=== PATIENT | male | born 1965 | race Caucasian/White ===

== ENCOUNTER → 2016-12-23 | Outpatient (CLI) | payer BC ==
[2016-12-23 11:25] LABS: ALBUMIN 4.2 G/DL (3.2-4.5); BILIRUBIN,TOTAL 0.8 MG/DL (0.1-1.0); CREATININE SERUM 1.37 MG/DL (0.60-1.30); TOTAL PROTEIN 6.7 G/DL (6.4-8.2)
[2016-12-23 11:45] LABS: THYROID STIMULATING HORMONE 1.92 UIU/ML (0.35-4.94)
--- NOTE | 2016-12-26 09:10 | ECHOCARDIOGRAPHY REPORT ---
PROCEDURE PHYSICIAN: TISHA EVANS DATE OF PROCEDURE: 12/23/2016 TWO DIMENSIONAL ECHOCARDIOGRAM REPORT PRIMARY PHYSICIAN: OTHER PHYSICIAN: REFERRING PHYSICIAN: Dr. Moris Miller ORDERING PHYSICIAN: INDICATION FOR THE PROCEDURE: Chest pain. MEASUREMENTS DERIVED VALUES LV DIAMETER (LAX) NORMALS NORMALS Diastolic 5.7 (3.6-5.2) Eject. Fract. 45% (60%+/-6%) Systolic (2.3-3.9) Diastolic Vol. % Shortening (0.22-0.42) Systolic Vol. Aortic Root IVS THICKNESS Diastolic 1 (0.6-1.1) LVPW THICKNESS Diastolic 1 (0.6-1.1) LA DIAMETER Systolic 3.5 (2.1-3.7) FINDINGS: 1. Technically suboptimal study. 2. The left ventricle is prominent. Mild diffuse left ventricular hypokinesia was noted. More pronounced at the lateral wall and anterolateral wall. Systolic function is reduced. Estimated ejection fraction 45%. 3. The left atrium is normal in size. No clot or thrombus were seen within the left atrium. 4. The right atrium and right ventricle are normal in size. No clot or thrombus were seen within the right side. 5. Mitral valve is normal in morphology with mild mitral regurgitation noted by color Doppler flow. No mitral valve prolapse. No mitral valve stenosis. 6. Aortic valve leaflets were not well visualized. No significant aortic stenosis or regurgitation was seen. 7. Tricuspid valve is normal in morphology with mild tricuspid regurgitation noted by color Doppler flow. Doppler across tricuspid valve estimated pulmonary artery pressure of 12+ right atrial pressure. 8. Pulmonic valve is functioning normally. 9. No pericardial effusion. IN CONCLUSION: 1. Prominent left ventricle with mild diffuse left ventricular hypokinesia more pronounced at the lateral wall and anterolateral segment. Systolic function is reduced. Estimated ejection fraction 45%. 2. Mild mitral and tricuspid regurgitation. 3. Estimated pulmonary artery pressure of 20 mmHg. Job ID: [id number] Dictated Date: 12/26/2016 08:16:02 Wastewater Superintendent Date: 12/26/2016 09:05:02 / aditya
== END ==
LOC: CARD 10:02
PROVIDERS: ATTEND Internal Medicine Cardiovascular Disease
DX: I10 Essential (primary) hypertension (principal); I49.3 Ventricular premature depolarization; R07.9 Chest pain, unspecified; R94.31 Abnormal electrocardiogram [ECG] [EKG]; Z82.3 Family history of stroke; Z82.49 Family history of ischemic heart disease and other diseases of the circulatory system
CPT/HCPCS: 36415; 80053; 80061; 84443; 93306

== ENCOUNTER → 2016-12-26 | Outpatient (CLI) | payer BC ==
[~2016-12-26] VITALS: Ht 180.3 cm; Wt 103.0 kg
[~2016-12-26] MED LIST: CATHETER FLUSH 10 ML SYR IV PRN
[2016-12-26 09:07] VITALS: BP 147/96
--- NOTE | 2016-12-27 07:54 | STRESS TEST ---
PROCEDURE PHYSICIAN: TISHA EVANS DATE OF PROCEDURE: 12/26/2016 EXERCISE MYOVIEW STRESS TEST REPORT: REFERRING PHYSICIAN: Dr. Moris Miller. INDICATION: Chest pain. BASELINE HEART RATE: 69 BASELINE BLOOD PRESSURE: 139/99 BASELINE EKG: Sinus rhythm with right bundle branch block, occasional PVCs, ventricular trigeminy. IN SUMMARY: The patient was injected with 10.47 mCi of technetium 99 Myoview and the resting images were obtained. Then the patient started exercising with a baseline heart rate, blood pressure and EKG mentioned above. During exercise the patient had frequent PVCs and ventricular trigeminy. At minute 9 his PVCs had improved. He received 32.7 mCi of technetium 99 Myoview. He was able to exercise for a total of 10 minutes on standard Gt protocol, achieving maximum heart rate of 162, which is 95% of maximum expected heart rate. With peak exercise level, PVC's have improved. Blood pressure was 201/93 during recovery. Within 1 minute of recovery, he started having ventricular trigeminy and frequent PVCs again persisted during recovery. Blood pressure has improved during recovery. EKG showed nondiagnostic changes. The resting and stress images were reviewed and compared in the short axis, horizontal long axis, and vertical long axis views. Review of the images showed diaphragmatic attenuation affecting the quality of the images. No significant ischemia was noted. Mild apical thinning. SSS is 0. TID value 0.91. On the gated images, the left ventricle appeared to be normal size with mild hypokinesia at the apex and basal to mid inferior wall. Calculated ejection fraction 46%. IN CONCLUSION: 1. Excellent exercise tolerance a total of 10 minutes on standard Gt protocol. Total of 12.8 METs, achieving 95% of maximum expected heart rate. 2. Frequent premature ventricular contraction and ventricular trigeminy persisted throughout test, improved at peak stress level. 3. Severe hypertensive response to exercise, returned to baseline during recovery. 4. Nondiagnostic EKG changes with exercise, returned to baseline during recovery. 5. Diaphragmatic attenuation with no ischemia or infarction on SPECT images. 6. Normal left ventricular size with mild hypokinesia at the true apex and basal to mid inferior wall. Calculated ejection fraction 46%. Job ID: [id number] Dictated Date: 12/26/2016 16:43:29 Sweeper Driver Date: 12/27/2016 07:50:20 / aditya
== END ==
LOC: CARD 08:20
PROVIDERS: ATTEND Internal Medicine Cardiovascular Disease
DX: R07.9 Chest pain, unspecified (principal); I10 Essential (primary) hypertension; I49.3 Ventricular premature depolarization; R94.31 Abnormal electrocardiogram [ECG] [EKG]; Z82.3 Family history of stroke; Z82.49 Family history of ischemic heart disease and other diseases of the circulatory system
CPT/HCPCS: 78452; 93017

== ENCOUNTER → 2019-05-10 | Outpatient (CLI) | payer BC | LOC: CARD 10:50 | PROVIDERS: ATTEND Physician Assistant | DX: I35.1 Nonrheumatic aortic (valve) insufficiency (principal); I10 Essential (primary) hypertension; I49.3 Ventricular premature depolarization; Z82.49 Family history of ischemic heart disease and other diseases of the circulatory system | CPT/HCPCS: 93306 ==

== ENCOUNTER → 2019-08-16 | Outpatient (CLI) | payer BC ==
[2019-08-16 10:26] LABS: ALANINE AMINOTRANSFERASE 20 U/L (0-55); ALBUMIN 4.7 GM/DL (3.2-4.5); ALKALINE PHOSPHATASE 57 U/L (40-136); BILIRUBIN,TOTAL 1.3 MG/DL (0.1-1.0); BUN/CREATININE RATIO 18; CALCIUM 9.6 MG/DL (8.5-10.1); CARBON DIOXIDE 28 MMOL/L (21-32); CHLORIDE 103 MMOL/L (98-107); CHOLESTEROL 232 MG/DL (< 200); CREATININE SERUM 1.36 MG/DL (0.60-1.30); GFR ESTIMATED 55; GLUCOSE 103 MG/DL (70-105); HDL CHOLESTEROL 61 MG/DL (40-60); POTASSIUM 4.7 MMOL/L (3.6-5.0); SODIUM 141 MMOL/L (135-145); TOTAL PROTEIN 7.2 GM/DL (6.4-8.2); TRIGLYCERIDES 94 MG/DL (<150); VLDL CHOLESTEROL 19 MG/DL (5-40)
== END ==
LOC: LAB 09:40
PROVIDERS: ATTEND Internal Medicine Cardiovascular Disease
DX: E78.2 Mixed hyperlipidemia (principal); I10 Essential (primary) hypertension
CPT/HCPCS: 36415; 80053; 80061

== ENCOUNTER → 2019-11-29 | Outpatient (CLI) | payer BC ==
[2019-11-29 10:18] LABS: ALBUMIN 4.6 GM/DL (3.2-4.5); BILIRUBIN,DIRECT 0.4 MG/DL (0.0-0.3); BILIRUBIN,INDIRECT 0.4 MG/DL; BILIRUBIN,TOTAL 0.8 MG/DL (0.1-1.0); TOTAL PROTEIN 7.4 GM/DL (6.4-8.2)
== END ==
LOC: LAB 09:40
PROVIDERS: ATTEND Physician Assistant
DX: I10 Essential (primary) hypertension (principal); I49.3 Ventricular premature depolarization; Z82.49 Family history of ischemic heart disease and other diseases of the circulatory system
CPT/HCPCS: 36415; 80061; 80076

== ENCOUNTER → 2021-03-09 | Outpatient (CLI) | payer BC ==
[2021-03-09 14:59] LABS: ALANINE AMINOTRANSFERASE 27 U/L (0-55); ALBUMIN 4.6 GM/DL (3.2-4.5); ALKALINE PHOSPHATASE 53 U/L (40-136); BILIRUBIN,TOTAL 0.6 MG/DL (0.1-1.0); BUN/CREATININE RATIO 14; CALCIUM 10.2 MG/DL (8.5-10.1); CARBON DIOXIDE 27 MMOL/L (21-32); CHLORIDE 105 MMOL/L (98-107); CHOLESTEROL 167 MG/DL (< 200); CREATININE SERUM 1.18 MG/DL (0.60-1.30); GFR ESTIMATED > 60; GLUCOSE 101 MG/DL (70-105); HDL CHOLESTEROL 68 MG/DL (40-60); POTASSIUM 4.3 MMOL/L (3.6-5.0); SODIUM 142 MMOL/L (135-145); TOTAL PROTEIN 7.7 GM/DL (6.4-8.2); TRIGLYCERIDES 107 MG/DL (<150); VLDL CHOLESTEROL 21 MG/DL (5-40)
== END ==
LOC: LAB 14:00
PROVIDERS: ATTEND Physician Assistant
DX: I10 Essential (primary) hypertension (principal); E78.2 Mixed hyperlipidemia
CPT/HCPCS: 36415; 80053; 80061

== ENCOUNTER → 2023-02-17 | Outpatient (CLI) | payer BC ==
[2023-02-17 12:50] LABS: TRIGLYCERIDES 70 MG/DL (<150); VLDL CHOLESTEROL 14 MG/DL (5-40)
[2023-02-17 12:54] LABS: CHOLESTEROL 210 MG/DL (< 200)
[2023-02-17 12:55] LABS: HDL CHOLESTEROL 73 MG/DL (40-60)
[2023-02-17 14:07] LABS: ALBUMIN 4.4 GM/DL (3.2-4.5)
[2023-02-17 14:08] LABS: POTASSIUM 4.3 MMOL/L (3.6-5.0)
[2023-02-17 14:09] LABS: CALCIUM 9.2 MG/DL (8.5-10.1)
[2023-02-17 14:10] LABS: TOTAL PROTEIN 7.1 GM/DL (6.4-8.2)
[2023-02-17 14:12] LABS: BILIRUBIN,TOTAL 0.9 MG/DL (0.1-1.0)
[2023-02-17 14:14] LABS: CREATININE SERUM 1.13 MG/DL (0.60-1.30)
== END ==
LOC: LAB 12:21
PROVIDERS: ATTEND Internal Medicine Cardiovascular Disease
DX: E78.2 Mixed hyperlipidemia (principal)
CPT/HCPCS: 36415; 80053; 80061